=== PATIENT | female | born 1975 | race Caucasian/White ===

== ENCOUNTER 2023-01-02 08:21 | Day surgery (SDC) | payer BC, OTHER ==
[~2023-01-02 08:21] MED LIST: Sodium Chloride 0.9% 1,000 ML IV SCH
[2023-01-02] MEDS ORDERED: fentaNYL 50 MCG/ML SDV ONE (09:08)
[2023-01-02] MEDS ORDERED: Midazolam 1 MG/ML 2 ML SDV ONE (09:08)
[2023-01-02] MEDS ORDERED: Propofol 200 MG/20 ML SDV ONE (09:08)
== END 2023-01-02 10:35 | disposition home or self-care (01) ==
LOC: JP.SDS 08:21
PROVIDERS: ATTEND Surgery
DX: Z12.11 Encounter for screening for malignant neoplasm of colon (principal); K58.9 Irritable bowel syndrome, unspecified; F17.200 Nicotine dependence, unspecified, uncomplicated; Z91.048 Other nonmedicinal substance allergy status
CPT/HCPCS: 45378; J2250; J2704; J3010; J7030